=== PATIENT | female | born 2005 | race Caucasian/White ===

== ENCOUNTER 2024-08-08 03:00 | Inpatient (IN) | payer MEDICAID, SELFPAY ==
[2024-08-07 23:58] VITALS: BMI 33.2
[2024-08-08] VITALS (153 sets, daily range): BP systolic 94–180; BP diastolic 50–106; PULSE 57–116; RESP 14–20; TEMP 36.3–37.3; O2SAT 83–100
[2024-08-08] MEDS: 0.9% Saline Lock 10 ML Syringe IV ×3 (01:20→20:31)
[2024-08-08 01:33] LABS: Hematocrit 35.2 % (37-47); Hemoglobin 11.5 g/dL (12.0-15.0); Mean Corp Hgb Conc 32.7 g/dL (32-36); Mean Corpuscular Volume 88.7 fL (81-99); Platelet Count 269 K/mm3 (150-450); RBC Distribution Width CV 15.2 % (11.6-14.6); RBC Distribution Width SD 49.7 fl (35.1-43.9); Red Blood Count 3.97 M/mm3 (4.2-5.4); White Blood Count 10.3 K/mm3 (4.4-11.0)
[2024-08-08 02:06] LABS: Protein, Urine (Random) < 6.0 mg/dL (0.0-12.0); Protein:Creat Ratio UNABLE TO CALCULATE mg/g CRE (0-200)
[2024-08-08 02:07] LABS: AST(SGOT) 25 U/L (<=31); Alanine Aminotransfer ALT/SGPT 15 U/L (<=34); Creatinine, Serum 0.63 mg/dL (0.70-1.20); EST Glomerular Filtration Rate 130 (>60); Estimated Creatinine Clearance 147.24 ml/min (50-250)
[2024-08-08 03:03] LABS: Uric Acid 5.5 mg/dL (2.6-6.0)
[2024-08-08] MEDS: Lactated Ringers 1,000 ML 50 ML IV (03:25)
[2024-08-08] MEDS: Lactated Ringers 1,000 ML 999 ML IV ×2 (03:25→17:00)
[2024-08-08 04:05] LABS: Amphetamine Urine NEGATIVE (<1000 ng/mL); Barbiturate Urine NEGATIVE (< 200 ng/mL); Benzodiazepine Urine NEGATIVE (< 200 ng/mL); Buprenorphine Urine NEGATIVE (< 200 ng/mL); Cocaine Urine NEGATIVE (< 300 ng/mL); Fentanyl, Urine NEGATIVE; Methadone Urine NEGATIVE (< 300 ng/mL); Opiates Urine NEGATIVE (< 300 ng/mL); Oxycodone, Urine NEGATIVE (< 100 ng/mL); PCP Urine NEGATIVE (< 25 ng/mL); THC Urine NEGATIVE (< 50 ng/mL)
[2024-08-08 04:10] LABS: Syphilis Antibodies Nonreactive (Nonreactive)
[2024-08-08] MEDS: fentaNYL-bupivacaine (epidural) 100 ML BAG EPIDURAL ×3 (04:33→13:12)
--- NOTE | 2024-08-08 08:53 | PCM.HP.OB ---
HPI - General General Date of Admission: 08/07/24 Date of Service: 08/08/24 Chief Complaint: labor HPI Narrative DIEUDONNE HITCHCOCK, is a 18 F who presents with complaints of contraction. When she arrived to labor and delivery she was feeling to have mildly elevated blood pressures consistent with gestational hypertension. She denied headache or visual changes. She was admitted for labor. Obstetrical history: This is her first Relevant past medical history significant for hearing deficit, antepartum anemia, anxiety and depression, she had late care and did not present until the third trimester for care. She also has nicotine use disorder Maternal Data Information Final TIM: 08/12/24 Gestational age: 39 3/7 [facility] Medical History (Updated 08/08/24 @ 08:[address] Shanelle Cai MD) Family history of hearing loss at age younger than 7 years Asthma Depression Anxiety Gestational HTN Home Medications ?Medication ?Instructions ?Recorded ?Last Taken ?Type ferrous sulfate 325 mg (65 mg 325 mg PO QODAY 08/08/24 08/07/24 History iron) tablet vit no.95-ferrous 1 tab PO DAILY 08/08/24 08/07/24 History fumarate 28 mg-folic acid 800 mcg tablet () Allergy/AdvReac Type Severity Reaction Status Date / Time No Known Allergies Allergy Verified 08/08/24 00:12 Surgical History (Updated 08/08/24 @ 03:30 by Kimberli Mcneil) History of surgery Social History Smoking Status: Former smoker History Elective abortions Hx Para 0 Spontaneous abortions Hx # Term Pregnancies Ectopic pregnancies Hx # Pregnancies Multiple births # of living children ROS Constitutional Constitutional: Denies fatigue, fever(s) or malaise Eyes Eyes: Denies change in vision ENT HEENT: Denies dizziness or headache(s) Cardiovascular Cardiovascular: Denies chest pain, dyspnea or lightheadedness Respiratory/Chest Respiratory/Chest: Denies cough or dyspnea Gastrointestinal Gastrointestinal: Denies change in bowel habits Genitourinary Genitourinary: Denies burning urination or genital lesions Integumentary Integumentary: Denies rash Neurologic Neurologic: Denies confusion, dizziness, headache(s), numbness or weakness Vital Signs Vital Signs Vital Signs: 08/08/24 00:20 08/08/24 00:20 08/08/24 00:20 Temperature Temperature Source Temporal Pulse Rate 75 Respiratory Rate Blood Pressure 170/90 H BP Systolic 170 BP Diastolic 90 Pulse Ox 08/08/24 00:20 08/08/24 00:20 08/08/24 00:20 Temperature 98.4 F Temperature Source Pulse Rate Respiratory Rate 16 Blood Pressure BP Systolic BP Diastolic Pulse Ox 100 08/08/24 00:23 08/08/24 00:23 08/08/24 00:39 Temperature Temperature Source Pulse Rate 69 Respiratory Rate Blood Pressure 154/91 H 152/88 H BP Systolic 154 152 BP Diastolic 91 88 Pulse Ox 08/08/24 00:39 08/08/24 00:55 08/08/24 00:55 Temperature Temperature Source Pulse Rate 69 61 Respiratory Rate Blood Pressure 134/69 H BP Systolic 134 BP Diastolic 69 Pulse Ox 08/08/24 01:30 08/08/24 01:30 08/08/24 02:22 Temperature Temperature Source Temporal Pulse Rate 57 L Respiratory Rate Blood Pressure 149/84 H BP Systolic 149 BP Diastolic 84 Pulse Ox 08/08/24 02:22 08/08/24 02:22 08/08/24 02:23 Temperature 97.9 F Temperature Source Pulse Rate Respiratory Rate 18 Blood Pressure 146/80 H BP Systolic 146 BP Diastolic 80 Pulse Ox 08/08/24 02:23 08/08/24 03:52 08/08/24 03:52 Temperature Temperature Source Temporal Pulse Rate 64 Respiratory Rate 16 Blood Pressure BP Systolic BP Diastolic Pulse Ox 08/08/24 03:52 08/08/24 04:12 08/08/24 04:12 Temperature 97.8 F Temperature Source Pulse Rate 74 Respiratory Rate Blood Pressure 140/95 H BP Systolic 140 BP Diastolic 95 Pulse Ox 08/08/24 04:12 08/08/24 04:12 08/08/24 04:17 Temperature Temperature Source Pulse Rate 74 Respiratory Rate Blood Pressure 141/78 H BP Systolic 141 BP Diastolic 78 Pulse Ox 100 08/08/24 04:17 08/08/24 04:17 08/08/24 04:19 Temperature Temperature Source Pulse Rate 71 75 Respiratory Rate Blood Pressure BP Systolic BP Diastolic Pulse Ox 99 08/08/24 04:19 08/08/24 04:22 08/08/24 04:22 Temperature Temperature Source Pulse Rate 71 Respiratory Rate Blood Pressure BP Systolic BP Diastolic Pulse Ox 83 100 08/08/24 04:23 08/08/24 04:23 08/08/24 04:27 Temperature Temperature Source Pulse Rate 69 74 Respiratory Rate Blood Pressure 147/84 H BP Systolic 147 BP Diastolic 84 Pulse Ox 08/08/24 04:27 08/08/24 04:28 08/08/24 04:28 Temperature Temperature Source Pulse Rate 71 Respiratory Rate Blood Pressure 145/81 H BP Systolic 145 BP Diastolic 81 Pulse Ox 96 08/08/24 04:33 08/08/24 04:33 08/08/24 04:33 Temperature Temperature Source Pulse Rate 73 Respiratory Rate 18 Blood Pressure 148/75 H BP Systolic 148 BP Diastolic 75 Pulse Ox 08/08/24 04:34 08/08/24 04:34 08/08/24 04:38 Temperature Temperature Source Pulse Rate 81 Respiratory Rate Blood Pressure 139/76 H BP Systolic 139 BP Diastolic 76 Pulse Ox 99 08/08/24 04:38 08/08/24 04:38 08/08/24 04:39 Temperature Temperature Source Pulse Rate 75 76 Respiratory Rate 16 Blood Pressure BP Systolic BP Diastolic Pulse Ox 08/08/24 04:39 08/08/24 04:40 08/08/24 04:40 Temperature Temperature Source Temporal Pulse Rate Respiratory Rate 16 Blood Pressure BP Systolic BP Diastolic Pulse Ox 99 08/08/24 04:40 08/08/24 04:42 08/08/24 04:42 Temperature 98.4 F Temperature Source Pulse Rate 74 Respiratory Rate Blood Pressure 139/80 H BP Systolic 139 BP Diastolic 80 Pulse Ox 08/08/24 04:42 08/08/24 04:44 08/08/24 04:44 Temperature Temperature Source Pulse Rate 76 Respiratory Rate 16 Blood Pressure BP Systolic BP Diastolic Pulse Ox 100 08/08/24 04:48 08/08/24 04:48 08/08/24 04:48 Temperature Temperature Source Pulse Rate 73 Respiratory Rate 16 Blood Pressure 144/86 H BP Systolic 144 BP Diastolic 86 Pulse Ox 08/08/24 04:49 08/08/24 04:49 08/08/24 04:52 Temperature Temperature Source Pulse Rate 77 Respiratory Rate Blood Pressure 147/86 H BP Systolic 147 BP Diastolic 86 Pulse Ox 99 08/08/24 04:52 08/08/24 04:52 08/08/24 04:54 Temperature Temperature Source Pulse Rate 72 71 Respiratory Rate 14 Blood Pressure BP Systolic BP Diastolic Pulse Ox 08/08/24 04:54 08/08/24 04:57 08/08/24 04:57 Temperature Temperature Source Pulse Rate 71 Respiratory Rate Blood Pressure 147/82 H BP Systolic 147 BP Diastolic 82 Pulse Ox 99 08/08/24 04:57 08/08/24 04:59 08/08/24 04:59 Temperature Temperature Source Pulse Rate 68 Respiratory Rate 16 Blood Pressure BP Systolic BP Diastolic Pulse Ox 99 08/08/24 05:02 08/08/24 05:02 08/08/24 05:02 Temperature Temperature Source Pulse Rate 68 Respiratory Rate 16 Blood Pressure 148/86 H BP Systolic 148 BP Diastolic 86 Pulse Ox 08/08/24 05:34 08/08/24 05:34 08/08/24 05:34 Temperature 97.8 F Temperature Source Temporal Pulse Rate Respiratory Rate 16 Blood Pressure BP Systolic BP Diastolic Pulse Ox 08/08/24 05:35 08/08/24 05:35 08/08/24 06:15 Temperature Temperature Source Pulse Rate 71 Respiratory Rate Blood Pressure 132/66 H 138/81 H BP Systolic 132 138 BP Diastolic 66 81 Pulse Ox 08/08/24 06:15 08/08/24 06:15 08/08/24 06:15 Temperature Temperature Source Temporal Pulse Rate 83 Respiratory Rate 16 Blood Pressure BP Systolic BP Diastolic Pulse Ox 08/08/24 06:15 08/08/24 07:22 08/08/24 07:22 Temperature 98.2 F Temperature Source Pulse Rate 68 Respiratory Rate Blood Pressure 128/62 H BP Systolic 128 BP Diastolic 62 Pulse Ox 08/08/24 07:22 08/08/24 07:22 08/08/24 07:22 Temperature 98.1 F Temperature Source Temporal Pulse Rate Respiratory Rate 16 Blood Pressure BP Systolic BP Diastolic Pulse Ox 08/08/24 08:28 08/08/24 08:28 08/08/24 08:28 Temperature Temperature Source Temporal Pulse Rate 63 Respiratory Rate Blood Pressure 136/75 H BP Systolic 136 BP Diastolic 75 Pulse Ox 08/08/24 08:28 08/08/24 08:28 Temperature 99.0 F Temperature Source Pulse Rate Respiratory Rate 16 Blood Pressure BP Systolic BP Diastolic Pulse Ox Weight Weight: 85.094 kg Body Mass Index (BMI) 33.2 Physical Exam Const alert and no apparent distress General Appearance: cooperative HEENT normocephalic Resp normal respiratory effort Cardio regular rate GI soft to palpation GI Narrative: gravid, nontender, appropriate for gestational age Extremity no calf tenderness General Extremity: edema Skin no wounds Rashes: No rashes noted Psych activity/motor behavior normal Labs Labs Labs: Blood Type A POSITIVE Antibody Screen NEGATIVE Hct 35.2 % (37-47) L Hgb 11.5 g/dL (12.0-15.0) L Syphilis Total Ab Nonreactive (Nonreactive) Assessment & Plan (1) Supervision of high risk in third trimester: COMMENT: Estimated weight is less than 4500 g clinically and pelvis clinically adequate to expect vaginal delivery. May have epidural or other routine pain control measures as needed. Monitor for signs and symptoms of severe preeclampsia. (2) 39 weeks gestation of : (3) Spontaneous onset of labor:
[2024-08-08] MEDS: Lactated Ringers 1,000 ML 200 ML IV ×2 (09:31→14:56)
[2024-08-08] MEDS: Ondansetron 4 MG/2 ML Vial IV (13:50)
[2024-08-08] MEDS: Oxytocin 15 Units/NS 250ml 15 UNITS/250 ML IV.SOLN 334 UNITS IV (16:23)
[2024-08-08] MEDS: Methylergonovine 0.2 MG/ML Ampul IM (16:28)
[2024-08-08] MEDS: miSOPROStol 200 MCG Tablet 1000 MCG RC (16:47)
[2024-08-08] MEDS: Carboprost Tromethamine 250 MCG/ML Ampul IM (16:51)
[2024-08-08] MEDS: 0.9% Normal Saline (250mL Bag) 250 ML 999 ML IV (17:04)
[2024-08-08] MEDS: TRANEXAMIC ACID 1,000 MG in 0.9% Normal Saline (100mL Bag) 100 ML 440 MG IV (17:13)
[2024-08-08 17:16] LABS: Absolute Lymphocyte Count 1.04 X10^3/uL (0.83-4.51); Basophil# 0.02 X10^3/uL; Basophil% 0.1 % (0-1); Eosinophil# 0.01 X10^3/uL; Eosinophils% 0.1 % (0-5); Hematocrit 30.5 % (37-47); Hemoglobin 10.2 g/dL (12.0-15.0); Lymphocyte # 1.04 X10^3/ul (0.83-4.51); Lymphocyte % 6.1 % (19-41); Mean Corp Hgb Conc 33.4 g/dL (32-36); Mean Corpuscular Hgb 29.4 pg (27.0-32.0); Mean Corpuscular Volume 87.9 fL (81-99); Mean Platelet Vol. 10.5 fl (6.2-12.0); Monocyte# 0.84 X10^3/uL; Monocyte% 4.9 % (0-10); NRBC Flagged by Analyzer 0 % (0-5); Neutrophil # 15.01 X10^3/uL (2.7-7.7); Neutrophil % 88.3 % (47-70); Platelet Count 249 K/mm3 (150-450); RBC Distribution Width CV 15.7 % (11.6-14.6); RBC Distribution Width SD 50.2 fl (35.1-43.9); Red Blood Count 3.47 M/mm3 (4.2-5.4)
[2024-08-08] MEDS: HYDROmorphone 1 MG/ML Syringe IV (17:22)
[2024-08-08] MEDS: Oxytocin 15 Units/NS 250ml 15 UNITS/250 ML IV.SOLN 83 UNITS IV (17:23)
--- NOTE | 2024-08-08 17:49 | EX.PCM.OBVAG ---
Maternal Data Information Final TIM: 08/12/24 Gestational age: 39 3/7 Vaginal Delivery Maternal Presentation Maternal Presentation: Active Labor Vaginal Delivery Information Procedure Performed: Vacuum Assisted Vaginal Delivery Station at time of placement: +3 (SKYLER, labia 2 cm) Number of vacuum pulls: 3 Number of vacuum pop offs: 1 Surgeon/Practitioner: Shanelle Cai Date of Procedure: 08/08/24 Pre-Procedure Diagnosis: maternal exhaustion, prolonged second stage, spont. labor Post-Procedure Diagnosis: same Type of anesthesia: Epidural Drain(s): Uterine Tamponade Balloon and Other Other drain details: nolen Special Medications: txa, methergine, hemabate Estimated Blood Loss: 2266 Fluids Replaced: 1000 cc LR bolus, 1 unit PRBCs Time of Delivery: 16:20 Findings Description of procedure: The patient was complete and pushing since 12:30 PM. She had several small breaks but ended pushing for 4+ hours. She had had adequate descent with moderate caput of the head. Position was SKYLER. Nolen was in place. Epidural was adequate. Estimated weight is less than 4500 g and pelvis clinically adequate to expect vaginal delivery. Patient was becoming very tired and frustrated. I discussed with the patient and her partner and mother risk benefits and alternatives to trial of vacuum-assisted vaginal delivery and they desired to proceed. The vacuum was placed on the flexion point and suction created to 550 mmHg. I pulled with 1 pull with descent on the second pole there was a pop-off and the head was almost . On the third pull the head began to crown and I removed to the vacuum without another pop-off and the patient finished delivering the head during that contraction with maternal pushing efforts only. The shoulder delivered less than 15 seconds without difficulty. A vigorous female was delivered SKYLER over fourth degree laceration. The Pitocin infusion was initiated for active management of the third stage. The cord was clamped and cut after 1 minute. The infant was attended to by the waiting nursing staff. The placenta was delivered spontaneously and intact. The cervix was intact. There was initially atony without hemorrhage and she received fundal massage and a dose of Methergine IM x 1. I then began to repair the fourth degree laceration. However it was noted that then she had a gush of blood in the uterus had filled up with clots and approximately 500 cc of blood and clots were expressed. I explored the uterus and no remaining products were noted. I then performed an ultrasound and the endometrial stripe was appreciated. Patient was given Pitocin bolus, Hemabate and misoprostol rectally. I had to explore the uterus and continued fundal massage for several more minutes. TXA was ordered. She was typed and crossed for 2 units. A second IV site was started and labs were drawn. The TXA was arrived and was infused. The uterine balloon was then readied and placed at the fundus. 320 mL of normal saline were used to fill the balloon and the uterus was then firm against the balloon and it was secured against the lower uterine segment. There is no further active bleeding from the uterus. There continued to be some bleeding from the perineal laceration until repair was complete. The cervix was again examined and found to be in tact and there were no sulcus tears. The fourth degree laceration was then repaired. The rectal mucosa was reapproximated with 3-0 chromic suture. The external anal sphincter was identified and the capsule identified and it was repaired in an over lapping fashion with 3 through and through 0 Vicryl sutures. The second-degree portion of the laceration was then repaired with 2-0 Vicryl suture. The skin was reapproximated with 3-0 Vicryl repeat suture. I performed a rectal exam at the end of the repair and no sutures into the rectal mucosa. There were no defects noted. Sponge and needle counts were correct. A vaginal sweep was completed by me. Patient was given 1 unit of packed red blood cells and we will transfuse the second unit. We will recheck a blood count around midnight tonight. She will receive antibiotic prophylaxis while the balloon is in place. Will continue to monitor her blood pressures. Procedure findings: vigorous female infant Presentation: SKYLER Amniotic Membrane Rupture Type: Artificial Amniotic Fluid Description: Clear Placental Delivery Description: Spontaneous Placenta Disposition: [facility] Specimen collected: No Cord Vessel Description: 3 Vessels Cord Entanglement: None Cord Gases: VBG Infant A Gender: Female (Kassidy) (1 minute): 8 (5 minute): 10 Delayed Cord Clamping: Yes Veterinarian Laboratory Animal Care electronic warfare linguist: No Post Vaginal Deli Medications given after delivery: IV Pitocin, IM Methergin, IM Hemabate and Other (misoprostol) Episiotomy Description: None Laceration: 4th Degree Complication Complications: No
[2024-08-08] MEDS: Cefazolin 1 GM/50 ML BAG IV (18:10)
[2024-08-08] MEDS: Acetaminophen 500 MG Tablet 1000 MG PO (18:29)
[2024-08-08] MEDS: NIFEdipine 10 MG Capsule PO (18:58)
[2024-08-08] MEDS: Loperamide 2 MG Capsule 4 MG PO (19:00)
[2024-08-08] MEDS: DiphenhydrAMINE 50 MG/ML Syringe 25 MG IV (19:02)
[2024-08-08] MEDS: Lactated Ringers 1,000 ML 100 ML IV (19:09)
[2024-08-08] MEDS: NIFEdipine 10 MG Capsule 20 MG PO ×2 (19:37→20:09)
[2024-08-08] MEDS: Furosemide 20 MG/2 ML VIAL 10 MG IV (20:30)
[2024-08-08] MEDS: Magnesium Sulfate 4gm/100mL 4 GM/100 ML IV.SOLN. IV (20:48)
[2024-08-08] MEDS: Magnesium Sulfate 20 GM/500 ML BAG IV (21:20)
[2024-08-09] VITALS (35 sets, daily range): BP systolic 100–139; BP diastolic 50–89; PULSE 70–104; RESP 15–20; TEMP 36.4–37.2; O2SAT 97–100
[2024-08-09] MEDS: Cefazolin 1 GM/50 ML BAG IV ×2 (00:10→06:10)
[2024-08-09 01:10] LABS: Red Blood Count 4.13 M/mm3 (4.2-5.4); White Blood Count 24.4 K/mm3 (4.4-11.0)
[2024-08-09 01:11] LABS: Hematocrit 35.2 % (37-47); Hemoglobin 12.2 g/dL (12.0-15.0); Mean Corp Hgb Conc 34.7 g/dL (32-36); Mean Corpuscular Hgb 29.5 pg (27.0-32.0); Mean Corpuscular Volume 85.2 fL (81-99); Mean Platelet Vol. 10.3 fl (6.2-12.0); Platelet Count 258 K/mm3 (150-450); RBC Distribution Width CV 15.6 % (11.6-14.6); RBC Distribution Width SD 48.5 fl (35.1-43.9)
[2024-08-09] MEDS: Acetaminophen 500 MG Tablet 1000 MG PO ×2 (05:15→12:43)
[2024-08-09] MEDS: Benzocaine/Lanolin/Aloe Vera 85 GM Spray 1 SPRAY TOPICAL (05:32)
[2024-08-09] MEDS: Magnesium Sulfate 20 GM/500 ML BAG IV (06:27)
[2024-08-09] MEDS: oxyCODONE 5 MG Tablet PO (07:50)
[2024-08-09 08:01] LABS: Absolute Lymphocyte Count 1.68 X10^3/uL (0.83-4.51); Absolute Neutrophil Count 19.2 X10^3/uL (2.0-7.7); Basophil# 0.03 X10^3/uL; Basophil% 0.1 % (0-1); Eosinophil# 0.02 X10^3/uL; Eosinophils% 0.1 % (0-5); Hematocrit 31.6 % (37-47); Hemoglobin 10.9 g/dL (12.0-15.0); Lymphocyte # 1.68 X10^3/ul (0.83-4.51); Lymphocyte % 7.5 % (19-41); Mean Corp Hgb Conc 34.5 g/dL (32-36); Mean Corpuscular Hgb 29.3 pg (27.0-32.0); Mean Corpuscular Volume 84.9 fL (81-99); Mean Platelet Vol. 10.5 fl (6.2-12.0); Monocyte# 1.36 X10^3/uL; Monocyte% 6.1 % (0-10); NRBC Flagged by Analyzer 0 % (0-5); Neutrophil # 19.19 X10^3/uL (2.7-7.7); Neutrophil % 85.6 % (47-70); Platelet Count 258 K/mm3 (150-450); RBC Distribution Width CV 15.9 % (11.6-14.6); RBC Distribution Width SD 49.7 fl (35.1-43.9); Red Blood Count 3.72 M/mm3 (4.2-5.4); White Blood Count 22.4 K/mm3 (4.4-11.0)
--- NOTE | 2024-08-09 08:29 | NURSING ---
100 cc of fluid removed from bakri balloon per rocha's order
--- NOTE | 2024-08-09 08:53 | PCM.PROGNOTE ---
Subjective Subjective patient seen at bedside, doing well. Patient reports pain and discomfort in abdomen, and some pain in vaginal area. lochia mild. not passing flatus Objective Data Objective Data Vital Signs: Vital Signs Temp Pulse Resp BP Pulse Ox O2 Del Method 98.3 F 86 17 113/56 L 98 Room Air 08/09/24 08:02 08/09/24 08:03 08/09/24 08:02 08/09/24 08:03 08/09/24 08:02 08/09/24 08:02 Oxygen Delivery Method Room Air Weight: 85.094 kg Body Mass Index (BMI) 33.2 Intake & Output: Intake and Output for Last 24 Hours 08/07/24 08/08/24 08/09/24 23:59 23:59 23:59 Intake Total 6461.67 / 6561.67 1275.83 / 1275.83 Output Total 7482 / 7782 3550 / 3550 Balance -1020.33 / -1220.33 -2274.17 / -2274.17 Lab / Micro Data 08/09/24 07:47 08/08/24 01:20 Labs: Laboratory Results - last 24 hr 08/08/24 00:15: WBC Cancelled, Corrected WBC Cancelled, RBC Cancelled, Hgb Cancelled, Hct Cancelled, MCV Cancelled, MCH Cancelled, MCHC Cancelled, RDW Std Deviation Cancelled, RDW Coeff of Sophie Cancelled, Plt Count Cancelled, MPV Cancelled, Diff Path Review Cancelled 08/08/24 01:20: MCV 88.7, MCHC 32.7, Crossmatch See Detail 08/08/24 17:00: WBC 17.0 H, RBC 3.47 L, Hgb 10.2 L, Hct 30.5 L, MCV 87.9, MCH 29.4, MCHC 33.4, RDW Std Deviation 50.2 H, RDW Coeff of Sophie 15.7 H, Plt Count 249, MPV 10.5, Immature Gran % (Auto) 0.500, Neut % (Auto) 88.3 H, Lymph % (Auto) 6.1 L, [place] % (Auto) 4.9, Eos % (Auto) 0.1, Baso % (Auto) 0.1, Absolute Neuts (auto) 15.0 H, Absolute Lymphs (auto) 1.04, Nucleated RBC % 0 08/09/24 00:15: WBC 24.4 H, RBC 4.13 L, Hgb 12.2, Hct 35.2 L, MCV 85.2, MCH 29.5, MCHC 34.7, RDW Std Deviation 48.5 H, RDW Coeff of [place] 15.6 H, Plt Count 258, MPV 10.3 08/09/24 07:47: WBC 22.4 H, RBC 3.72 L, Hgb 10.9 L, Hct 31.6 L, MCV 84.9, MCH 29.3, MCHC 34.5, RDW Std Deviation 49.7 H, RDW Coeff of Sophie 15.9 H, Plt Count 258, MPV 10.5, Immature Gran % (Auto) 0.600, Neut % (Auto) 85.6 H, Lymph % (Auto) 7.5 L, [place] % (Auto) 6.1, Eos % (Auto) 0.1, Baso % (Auto) 0.1, Absolute Neuts (auto) 19.2 H, Absolute Lymphs (auto) 1.68, Nucleated RBC % 0 Physical Exam Narrative Abd: fundus firm. above umbilicus but tamponade balloon in place Const alert and oriented x3 General Appearance: cooperative HEENT normocephalic Neck General: normal visual inspection GI soft to palpation and non-distended GI Narrative: Fundus firm Extremity normal to inspection and no calf tenderness Skin no rashes or lesions noted Neuro oriented x3 and CN's II-XII intact bilaterally Psych mental status grossly normal Assessment & Plan Assessment/Plan (1) Gestational HTN: (2) Obstetric vaginal laceration: (3) Obstetric vaginal laceration with fourth degree perineal laceration: (4) Vacuum-assisted vaginal delivery: (5) Acute blood loss anemia: PLAN: Plan PPD# 1 Routine care pain mgmt ambulation low residue diet will schedule appt at perineal wound clinic maintain nolen until swelling decreased - will check at 7pm and if still signficant swelling keep until tmrw morning IV toradol Q6 x24hrs then motrin CBC in am will start deflating tamponade balloon 100cc per hour until out
--- NOTE | 2024-08-09 09:37 | NURSING ---
bakri balloon out at this time. pt tolerates well and get instant relief.
[2024-08-09] MEDS: Ketorolac 30 MG/ML Syringe IV ×3 (09:44→21:53)
[2024-08-09] MEDS: Docusate Sodium 100 MG Capsule PO ×2 (09:45→21:54)
[2024-08-09] MEDS: Ondansetron 4 MG/2 ML Vial IV (18:46)
[2024-08-09] MEDS: 0.9% Saline Lock 10 ML Syringe IV (21:54)
[2024-08-10] VITALS (10 sets, daily range): BP systolic 121–140; BP diastolic 62–88; PULSE 62–84; RESP 16; TEMP 36.7–37.2; O2SAT 81–100
[2024-08-10] MEDS: 0.9% Saline Lock 10 ML Syringe IV ×3 (03:38→09:45)
[2024-08-10] MEDS: Ketorolac 30 MG/ML Syringe IV ×2 (03:39→09:14)
[2024-08-10 05:48] LABS: Absolute Lymphocyte Count 2.25 X10^3/uL (0.83-4.51); Absolute Neutrophil Count 11.4 X10^3/uL (2.0-7.7); Basophil# 0.04 X10^3/uL; Basophil% 0.3 % (0-1); Eosinophil# 0.17 X10^3/uL; Eosinophils% 1.1 % (0-5); Hematocrit 25.3 % (37-47); Hemoglobin 8.6 g/dL (12.0-15.0); Lymphocyte # 2.25 X10^3/ul (0.83-4.51); Lymphocyte % 15.1 % (19-41); Mean Corpuscular Hgb 29.8 pg (27.0-32.0); Mean Corpuscular Volume 87.5 fL (81-99); Mean Platelet Vol. 10.1 fl (6.2-12.0); Monocyte# 0.86 X10^3/uL; Monocyte% 5.8 % (0-10); NRBC Flagged by Analyzer 0 % (0-5); Neutrophil # 11.41 X10^3/uL (2.7-7.7); Neutrophil % 76.6 % (47-70); Platelet Count 212 K/mm3 (150-450); RBC Distribution Width CV 16.5 % (11.6-14.6); RBC Distribution Width SD 53.1 fl (35.1-43.9); Red Blood Count 2.89 M/mm3 (4.2-5.4); White Blood Count 14.9 K/mm3 (4.4-11.0)
--- NOTE | 2024-08-10 07:01 | PN_ITS ---
Subjective Subjective patient seen at bedside, doing well. Patient reports good pain control. lochia mild. reports urinating w/o difficulty. ambulating w/o diffculty Objective Data Objective Data Vital Signs: Vital Signs Temp Pulse Resp BP Pulse Ox O2 Del Method 98.0 F 70 16 121/76 H 96 Room Air 08/10/24 02:38 08/10/24 02:38 08/10/24 02:38 08/10/24 02:38 08/10/24 02:38 08/10/24 02:38 Oxygen Delivery Method Room Air Weight: 85.094 kg Body Mass Index (BMI) 33.2 Intake & Output: Intake and Output for Last 24 Hours 08/08/24 08/09/24 08/10/24 23:59 23:59 23:59 Intake Total 6461.67 / 6561.67 2789.16 / 2789.16 Output Total 7482 / 7782 5100 / 5100 700 / 700 Balance -1020.33 / -1220.33 -2310.84 / -2310.84 -700 / -700 Lab / Micro Data 08/10/24 05:40 08/08/24 01:20 Labs: Laboratory Results - last 24 hr 08/09/24 07:47: WBC 22.4 H, RBC 3.72 L, Hgb 10.9 L, Hct 31.6 L, MCV 84.9, MCH 29.3, MCHC 34.5, RDW Std Deviation 49.7 H, RDW Coeff of Sophie 15.9 H, Plt Count 258, MPV 10.5, Immature Gran % (Auto) 0.600, Neut % (Auto) 85.6 H, Lymph % (Auto) 7.5 L, [place] % (Auto) 6.1, Eos % (Auto) 0.1, Baso % (Auto) 0.1, Absolute Neuts (auto) 19.2 H, Absolute Lymphs (auto) 1.68, Nucleated RBC % 0 08/10/24 05:40: WBC 14.9 H, RBC 2.89 L, Hgb 8.6 L, Hct 25.3 L, MCV 87.5, MCH 29.8, MCHC 34.0, RDW Std Deviation 53.1 H, RDW Coeff of Sophie 16.5 H, Plt Count 212, MPV 10.1, Immature Gran % (Auto) 1.100 H, Neut % (Auto) 76.6 H, Lymph % (Auto) 15.1 L, [place] % (Auto) 5.8, Eos % (Auto) 1.1, Baso % (Auto) 0.3, Absolute Neuts (auto) 11.4 H, Absolute Lymphs (auto) 2.25, Nucleated RBC % 0 Physical Exam Narrative Abd: fundus firm. vulva: minimal swelling on labia majora- soft- no induration. no ecchymosis - no signs of hematoma. Const alert and oriented x3 General Appearance: cooperative HEENT normocephalic Neck General: normal visual inspection GI soft to palpation and non-distended GI Narrative: Fundus firm Extremity normal to inspection and no calf tenderness Skin no rashes or lesions noted Neuro oriented x3 and CN's II-XII intact bilaterally Psych mental status grossly normal Assessment & Plan Assessment/Plan (1) Acute blood loss anemia: (2) Vacuum-assisted vaginal delivery: (3) Obstetric vaginal laceration with fourth degree perineal laceration: (4) Obstetric vaginal laceration: (5) Preeclampsia: PLAN: Plan PPD#2 , Doing well Routine care pain mgmt ambulation continue Perineal wound care- will schedule outpatient with perineal wound clinic w/ [facility]- order previously placed IV venofer and then PO iron upon discharge (pt has her own PO iron at home she reports) continue to monitor blood pressure (s/p Magnesium sulfate for severe range BPs)
[2024-08-10] MEDS: Iron Sucrose Complex 200 MG in 0.9% Normal Saline (100mL Bag) 100 ML 220 MG IV (09:12)
[2024-08-10] MEDS: Docusate Sodium 100 MG Capsule PO ×2 (09:15→21:47)
[2024-08-10] MEDS: Ibuprofen 600 MG Tablet PO ×2 (15:28→21:47)
[2024-08-10] MEDS: Acetaminophen 500 MG Tablet 1000 MG PO (19:58)
[2024-08-11] VITALS (8 sets, daily range): BP systolic 118–153; BP diastolic 70–88; PULSE 64–78; RESP 16; TEMP 36.2–36.9; O2SAT 98–100
[2024-08-11] MEDS: Ibuprofen 600 MG Tablet PO (04:14)
[2024-08-11 04:46] LABS: Absolute Neutrophil Count 6.4 X10^3/uL (2.0-7.7); Basophil# 0.04 X10^3/uL; Basophil% 0.4 % (0-1); Eosinophil# 0.24 X10^3/uL; Eosinophils% 2.5 % (0-5); Hematocrit 26.2 % (37-47); Hemoglobin 8.8 g/dL (12.0-15.0); Lymphocyte % 22.2 % (19-41); Mean Corp Hgb Conc 33.6 g/dL (32-36); Mean Corpuscular Hgb 29.7 pg (27.0-32.0); Mean Corpuscular Volume 88.5 fL (81-99); Mean Platelet Vol. 10.1 fl (6.2-12.0); Monocyte# 0.49 X10^3/uL; Monocyte% 5.2 % (0-10); NRBC Flagged by Analyzer 0 % (0-5); Neutrophil # 6.42 X10^3/uL (2.7-7.7); Neutrophil % 67.9 % (47-70); Platelet Count 236 K/mm3 (150-450); RBC Distribution Width CV 15.9 % (11.6-14.6); RBC Distribution Width SD 51.6 fl (35.1-43.9); Red Blood Count 2.96 M/mm3 (4.2-5.4); White Blood Count 9.5 K/mm3 (4.4-11.0)
--- NOTE | 2024-08-11 06:46 | PN_ITS ---
Subjective Subjective patient seen at bedside, doing well. Patient reports good pain control. lochia mild. reports no difficulty urinating. has not had BM yet. Objective Data Objective Data Vital Signs: Vital Signs Temp Pulse Resp BP Pulse Ox O2 Del Method 97.1 F L 64 16 118/70 99 Room Air 08/11/24 04:15 08/11/24 04:16 08/11/24 04:15 08/11/24 04:16 08/11/24 04:16 08/11/24 04:15 Oxygen Delivery Method Room Air Weight: 85.094 kg Body Mass Index (BMI) 33.2 Intake & Output: Intake and Output for Last 24 Hours 08/09/24 08/10/24 08/11/24 23:59 23:59 23:59 Intake Total 2789.16 / 2789.16 110 / 110 Output Total 5100 / 5100 700 / 700 Balance -2310.84 / -2310.84 -590 / -590 Lab / Micro Data 08/11/24 04:20 08/08/24 01:20 Labs: Laboratory Results - last 24 hr 08/11/24 04:20: WBC 9.5, RBC 2.96 L, Hgb 8.8 L, Hct 26.2 L, MCV 88.5, MCH 29.7, MCHC 33.6, RDW Std Deviation 51.6 H, RDW Coeff of Sophie 15.9 H, Plt Count 236, MPV 10.1, Immature Gran % (Auto) 1.800 H, Neut % (Auto) 67.9, Lymph % (Auto) 22.2, [place] % (Auto) 5.2, Eos % (Auto) 2.5, Baso % (Auto) 0.4, Absolute Neuts (auto) 6.4, Absolute Lymphs (auto) 2.10, Nucleated RBC % 0 Physical Exam Narrative Abd: fundus firm. Const alert and oriented x3 General Appearance: cooperative HEENT normocephalic Neck General: normal visual inspection GI soft to palpation and non-distended GI Narrative: Fundus firm Extremity normal to inspection and no calf tenderness Skin no rashes or lesions noted Neuro oriented x3 and CN's II-XII intact bilaterally Psych mental status grossly normal Assessment & Plan Assessment/Plan (1) Preeclampsia: (2) Acute blood loss anemia: (3) Vacuum-assisted vaginal delivery: (4) Obstetric vaginal laceration with fourth degree perineal laceration: PLAN: Plan PPD#3 , Doing well Routine care pain mgmt ambulation dc home today BP well controlled time spent with patient on day of dischrge face to face <30min
--- NOTE | 2024-08-11 06:48 | DCINST_ITS ---
Discharge Instructions Diet Discharge Diet: No restrictions DC O2, CPAP, BIPAP needs Home O2 Discharge instructions: No Dressing / Incision May resume sexual activity in: 6-8 weeks Dressing / Incision Call your doctor if you observe: Fever of 101 or Higher, Inability to urinate, Using more than 1 pad per hour and Uncontrolled pain Follow Up Care Please Follow Up With: Kyleigh Banks MD When: 1 week post and again at 6 weeks post . [phone]: if you had PREECLAMPSIA or other Blood pressure concerns in labor you should be seen in 48-72 hours in the office. Test Results: Test results from this visit will be discussed in further detail at your follow- up appointment, if applicable. Discharge Plan Admission Admit Date/Time: 08/08/24 03:00 Attending Provider: Shanelle Cai Primary Care Provider: Care Physician,Anni Primary Discharge Orders/Prescriptions Prescriptions: New acetaminophen 500 mg Tablet 1,000 mg PO Q6H PRN PRN (Reason: Pain 1-10 Or Fever) Qty: 0 0RF docusate sodium 100 mg Capsule 100 mg PO BID 30 Days Qty: 60 1RF ibuprofen 600 mg Tablet 600 mg PO Q6H PRN PRN (Reason: Pain Score 1-10) Qty: 0 0RF Continued PNV cmb#95-ferrous fumarate-FA [] 28 mg iron- 800 mcg tablet 1 tab PO DAILY ferrous sulfate 325 mg (65 mg iron) tablet 325 mg PO QODAY Referrals / Follow Up: Care Physician,No Primary [Primary Care Provider] - Disposition Disposition (needs filled in before D/C Order can be placed): Home, Self Care
--- NOTE | 2024-08-11 06:54 | PCM.DC.BLA ---
Discharge Summary Date of Admission: 09/08/24 Date of Discharge: 09/10/24 Summary: Patient was admitted to [facility] on 08/08/2024 and labor. She was found to have mildly elevated blood pressures that progressed to severe range blood pressures and was treated acutely with labetalol protocol and magnesium sulfate. She then delivered vacuum-assisted had 4th degree vaginal laceration with an immediate hemorrhage of approximately 2066 cc blood loss. Patient received 2 units of blood and IV Venofer after delivery her hemoglobin hematocrit stabilized at 8.8/26.2. Patient discharged home on day #3 in stable condition. She has to follow-up with the perineal wound clinic at the [facility] as well as have a 48 to 72-hour blood pressure check in the office after discharge. Blood pressure was stable upon discharge home was not on any oral medications Meaningful Use Info Meaningful Use Meaningful Use Diagnoses (Choose all that apply): None applicable Ischemic Stroke Statin Dosing Therapy Reference: STATIN DOSE THERAPY REFERENCE: * Patients > 75 years receive moderate or high dose statin therapy. * Patients 75 years or YOUNGER should receive HIGH intensity statin dose unless contraindicated. You will be required to document reason for non-treatment if statin daily dose does not meet guidelines. HIGH DOSE STATIN THERAPY DAILY Atorvastatin > than or = to 40 mg Rosuvastatin > than or = to 20 mg Amlodipine + Atorvastatin > than or = to 2.5/40 mg Ezetimibe + Simvastatin 10/80 mg Simvastatin 80mg Discharge Plan Admission Admit Date/Time: 08/08/24 03:00 Attending Provider: Shanelle Cai Primary Care Provider: Care Physician,Anni Primary Discharge Orders/Prescriptions Prescriptions: New acetaminophen 500 mg Tablet 1,000 mg PO Q6H PRN PRN (Reason: Pain 1-10 Or Fever) Qty: 0 0RF docusate sodium 100 mg Capsule 100 mg PO BID 30 Days Qty: 60 1RF ibuprofen 600 mg Tablet 600 mg PO Q6H PRN PRN (Reason: Pain Score 1-10) Qty: 0 0RF Continued PNV cmb#[id number]-ferrous fumarate-FA [] 28 mg iron- 800 mcg tablet 1 tab PO DAILY ferrous sulfate 325 mg (65 mg iron) tablet 325 mg PO QODAY Referrals / Follow Up: Care Physician,No Primary [Primary Care Provider] - Disposition Disposition (needs filled in before D/C Order can be placed): Home, Self Care
--- NOTE | 2024-08-15 14:44 | NURSING ---
Follow up phone call made, no answer, let voicemail
== END 2024-08-11 10:20 | disposition home or self-care (01) | DRG 542 ==
LOC: WPOUT 03:02 → WP 03:02
PROVIDERS: Advanced Practice Midwife; Obstetrics & Gynecology; Admitting Provider Obstetrics & Gynecology; Referring Provider Obstetrics & Gynecology; Visit Provider Obstetrics & Gynecology
DX: O13.4 Gestational [pregnancy-induced] hypertension without significant proteinuria, complicating childbirth (principal); Z37.0 Single live birth; D62 Acute posthemorrhagic anemia; F17.290 Nicotine dependence, other tobacco product, uncomplicated; O90.81 Anemia of the puerperium; O63.1 Prolonged second stage (of labor); O70.3 Fourth degree perineal laceration during delivery; O99.334 Smoking (tobacco) complicating childbirth; O75.81 Maternal exhaustion complicating labor and delivery; O72.1 Other immediate postpartum hemorrhage; Z3A.39 39 weeks gestation of pregnancy
CPT/HCPCS: 36415; 59025; 59050; 76815; 80307; 82565; 82570; 84156; 84450; 84460; 84550; 85025; 85027; 86780; 86850; 86900; 86901; 86920; 99221; J1756; P9016; A4216; G0378; J1938; J2405